=== PATIENT | female | born 1955 | race Caucasian/White ===

== ENCOUNTER 2023-05-08 17:30 | Emergency (ER) | payer MEDICARE, SELFPAY ==
[2023-05-08] VITALS (22 sets, daily range): BP systolic 119–159; BP diastolic 68–127; PULSE 66–77; RESP 12–23; TEMP 36.4–36.6; O2SAT 93–99
--- NOTE | ~2023-05-08 | XR_ITS ---
EXAMINATION: XR chest 1V portable Exam Date/Time: 05/08/2023 18:00 CORRECTIONAL LIEUTENANT HISTORY: COUGH/DIZZY/HX OF COPD Comparison: None. RESULT: Lines, tubes, and devices: None. Lungs and pleura: Biapical pleural scarring. Senescent changes. Hazy opacity in the right lower lung . Cardiomediastinal silhouette: Unremarkable. Other: No acute osseous or upper abdominal finding. IMPRESSION: Right lower lung atelectasis/consolidation. Reviewed, dictated and finalized at location K. ECTIONAL LIEUTENANT
--- NOTE | ~2023-05-08 | CT_ITS ---
EXAMINATION: CT brain wo con DATE: 05/08/2023 18:21 INDICATION: Dizziness/BRAIN SURGERY IN 1990 . TECHNIQUE: Computed tomography (CT) of the head was performed without intravenous contrast. The mA wa s adjusted according to patient size. Iterative reconstruction technique was employed. The dose-lengt h product was 681.00 mGy-cm. COMPARISON: None. FINDINGS: No acute intracranial hemorrhage or extra-axial fluid collection. No hydrocephalus, mass, or herniation. No acute ischemic infarct. Unremarkable dural venous sinus attenuation. No acute osseous abnormality. Frontal craniotomy. The aerated spaces are clear. Moderate atrophy and chronic white matter change. Atherosclerotic intracranial calcification. Old rig ht basal ganglia lacunar infarct. Large area of encephalomalacia in the left frontal lobe. Small area of encephalomalacia in the right medial frontal lobe. Ex vacuo dilation of the left anterior horn. IMPRESSION: No acute intracranial process. Reviewed, dictated and finalized at location K. HBRIDGE OPERATOR
--- NOTE | 2023-05-08 17:41 | ED.SYNCOPE ---
HPI - Syncope General Chief Complaint: Dizziness Stated Complaint: chest pain Time Seen by Provider: 05/08/23 17:39 Source: patient Mode of arrival: ambulatory Limitations: no limitations History of Present Illness HPI narrative: 67-year-old female smoker/vaper with hypertension, dyslipidemia, diabetes mellitus, arthritis, chronic low back pain, seizure disorder, parkinsonism, vertigo, COPD on home oxygen, was noted to have -- patient had substernal chest pain 03/12 yesterday following which she took 10 tablets of antacid. She continued to have pain until she went to bed last night. The patient was watching TV when she had chest pain. No nausea/vomiting. No shortness of breath. The patient has had multiple prior episodes of chest pain. She had a cardiac catheterization in 2005 which did not show any occlusive disease. -- This morning at 10:00 a.m., the patient went with her dog to the inside sales trainer and developed lightheadedness/ dizziness with flushing. These symptoms resolved spontaneously. The patient when back home and slept without any complaints. No urinary incontinence. In view of the chest pain yesterday and the lightheadedness today the patient presented to the ER. At this time the patient does not have any dizziness or lightheadedness. She does not have any focal deficit. The patient denied any chest pain. the patient has chronic shortness of breath without any significant worsening. No fever or chills. the patient was admitted 1 month ago in [facility] for possible COPD. MD complaint: felt faint Onset (ago): unknown Prodromal symptoms: none Witnessed: Yes - by Bystander Context: at rest Injuries sustained associated with event: none Current symptoms: none History: seizure disorder Related Data Home Medications Medication Instructions Recorded Confirmed albuterol sulfate 0.63 mg/3 mL 0.63 mg inhalation Q4H PRN Wheezing 05/08/23 05/08/23 solution for nebulization albuterol sulfate 90 mcg/actuation 2 puff inhalation QID PRN Wheezing 05/08/23 05/08/23 aerosol inhaler (Ventolin HFA) aspirin 81 mg tablet,delayed 81 mg PO DAILY 05/08/23 05/08/23 release atorvastatin 80 mg tablet (Lipitor) 80 mg PO DAILY 05/08/23 05/08/23 divalproex 250 mg tablet,delayed 250 mg PO QID 05/08/23 05/08/23 release (Depakote) gabapentin 300 mg capsule 300 mg PO BID 05/08/23 05/08/23 lisinopril 20 mg tablet 20 mg PO DAILY 05/08/23 05/08/23 lorazepam 0.5 mg tablet (Ativan) 0.5 mg PO BID 05/08/23 05/08/23 metformin 500 mg tablet,extended 500 mg PO DAILY 05/08/23 05/08/23 release 24 hr Allergies Allergy/AdvReac Type Severity Reaction Status Date / Time ibuprofen [From Advil] Allergy Unknown Verified 05/08/23 17:51 meloxicam [From Mobic] Allergy Unknown Verified 05/08/23 17:51 naproxen [From Aleve] Allergy Unknown Verified 05/08/23 17:51 tetanus toxoid, adsorbed Allergy Unknown Verified 05/08/23 17:51 Review of Systems Review of Systems: All systems reviewed & are unremarkable except as noted in HPI and below Constitutional: Constitutional: Reports as per HPI and Reports no additional constitutional complaints Eyes: Eyes: Reports as per HPI and Reports no additional eye complaints ENT: Reports system reviewed and no additional complaints, except as documented and Reports as per HPI Cardiovascular: Cardiovascular: Reports as per HPI and Reports no additional cardiovascular complaints Comments: She had chest pain yesterday which resolved spontaneously. Respiratory: Respiratory: Reports as per HPI and Reports no additional respiratory complaints Gastrointestinal: Gastrointestinal: Reports as per HPI and Reports no additional gastrointestinal complaints Genitourinary: Genitourinary: Reports no additional female genitourinary complaints and Reports as per HPI Musculoskeletal: Musculoskeletal: Reports no additional musculoskeletal complaints and Reports as per HPI Comments: Chronic joint pain. Ch
--- NOTE | 2023-05-08 17:52 | ECG_ITS ---
Measurements Intervals [place] Rate: 68 P: 85 AL: 169 QRS: -27 QRSD: 92 T: 31 QT: 385 QTc: 411 Interpretive Statements SINUS RHYTHM BORDERLINE LEFT AXIS DEVIATION [QRS AXIS < -20] INCOMPLETE RIGHT BUNDLE BRANCH BLOCK [90+ ms QRS DURATION, TERMINAL R IN V1/V2, 40+ ms S IN I/aVL/V4/V5/V6] NONSPECIFIC ST AND T-WAVE ABNORMALITY NO PREVIOUS ECG AVAILABLE FOR COMPARISON Electronically Signed On 05-09-2023 9:15:42 DENTAL SERVICES DIRECTOR by Jeana Briggs M.D.
[2023-05-08 18:12] LABS: Basophils Absolute Auto 0.03 K/mm3 (0.00-0.10); Basophils Percent Auto 0.4 % (0.0-1.0); Eosinophils Absolute Auto 0.04 K/mm3 (0.02-0.50); Eosinophils Percent Auto 0.5 % (1.0-6.0); Hematocrit 41.9 % (35.0-42.0); Hemoglobin 13.8 g/dL (11.7-13.8); Immature Granulocyte Absolute 0.02 K/mm3 (0.00-0.00); Immature Granulocyte Percent A 0.3 % (0.0-0.0); Lymphocytes Absolute Auto 2.51 K/mm3 (1.10-4.50); Lymphocytes Percent Auto 33.2 % (18.0-42.0); Mean Corpuscular HGB Conc 32.9 g/dL (32.0-36.0); Mean Corpuscular Hemoglobin 30.7 pg (27.0-31.0); Mean Corpuscular Volume 93.1 fL (78.0-102.0); Mean Platelet Volume 8.7 fl (9.2-11.8); Monocytes Absolute Auto 0.84 K/mm3 (0.10-0.90); Monocytes Percent Auto 11.1 % (2.0-11.0); Neutrophils Absolute Auto 4.1 K/mm3 (1.7-7.2); Neutrophils Percent Auto 54.5 % (50.0-70.0); Platelet Count Result 145 K/mm3 (150-420); Red Cell Distribution Width 13.7 % (11.6-14.4); White Blood Count 7.6 K/mm3 (4.8-10.8)
[2023-05-08 18:27] LABS: D Dimer 0.19 mg/L (0.19-0.50); Partial Thromboplastin Time 23.7 SEC (23.90-30.70); Prothrombin Time 10.9 Seconds (9.50-12.10)
--- NOTE | 2023-05-08 18:28 | PC.NURSE ---
PT IS AWAITING RESULTS AT THIS TIME. PT HAS RETURNED FROM CT AND FAMILY IS AT BEDSIDE. NAD NOTED. VSS PER MONITOR. WILL CONTINUE TO MONITOR.
[2023-05-08 18:31] LABS: Lactic Acid Reflex 1.5 mmol/L (0.4-2.0)
[2023-05-08 18:32] LABS: Alanine Aminotransferase 17 U/L (14-59); Albumin Level 3.3 g/dL (3.4-5.0); Alkaline Phosphatase 38 U/L (46-116); Anion Gap 0 mmol/L (8-16); Aspartate Amino Transferase 18 U/L (15-37); Bilirubin,Total 0.4 mg/dL (0.00-1.00); Blood Urea Nitrogen 13 mg/dL (7-18); Calcium 9.6 mg/dL (8.5-10.1); Carbon Dioxide 34 mmol/L (21-32); Chloride 100 mmol/L (98-108); Estimated CRCL calculation 66 ml/min; Estimated Glomerular Filt Rate > 60; Glucose 95 mg/dL (70-99); Lipase 34 U/L (16-77); NT Pro B Type Natriuretic Pept 215 pg/mL (0-125); Osmolality Calculated 278 mOsm/kg (285-295); Potassium 4.7 mmol/L (3.5-5.1); Sodium 134 mmol/L (136-145); Total Protein 6.7 g/dL (6.4-8.2)
[2023-05-08 18:34] LABS: Troponin I 6.4 ng/L (0.00-60.4)
--- NOTE | 2023-05-08 19:06 | PC.NURSE ---
patient report received from FABIO Jesus. patient awake and alert resting on stretcher, update provided by ERP Dr. Wall regarding results and plan for discharge.
[2023-05-08] MEDS: AZITHROMYCIN 250 MG TABLET 500 MG PO (19:14)
== END 2023-05-08 19:22 | disposition home or self-care (01) ==
PROVIDERS: Emergency Provider Internal Medicine Critical Care Medicine; PCP Family Medicine
DX: R55 Syncope and collapse (principal); R07.9 Chest pain, unspecified; R06.02 Shortness of breath; I10 Essential (primary) hypertension; E78.5 Hyperlipidemia, unspecified; E11.9 Type 2 diabetes mellitus without complications; J44.9 Chronic obstructive pulmonary disease, unspecified; G20.C Parkinsonism, unspecified; Z99.81 Dependence on supplemental oxygen; Z79.899 Other long term (current) drug therapy; Z79.82 Long term (current) use of aspirin; Z79.84 Long term (current) use of oral hypoglycemic drugs
CPT/HCPCS: 36415; 70450; 71045; 80053; 83605; 83690; 83880; 84484; 85025; 85380; 85610; 85730; 93005; 99284; A9270